=== PATIENT | female | born 1945 | race African-American/Black ===

== ENCOUNTER 2017-04-06 08:58 | Emergency (ER) | payer OTHER ==
[2017-04-06 09:06] VITALS: BP 149/81; PULSE 85; TEMP 99; BMI 22.7
[2017-04-06] MEDS ORDERED: KETOROLAC TROMETHAMINE 60 MG/2 ML VIAL IM ONE (09:50)
[2017-04-06] MEDS ORDERED: KETOROLAC TROMETHAMINE 60 MG/2 ML VIAL ONE (09:51)
[2017-04-06] MEDS ORDERED: CYCLOBENZAPRINE HCL 10 MG TABLET (FP) PO ONE (10:55)
[2017-04-06] MEDS ORDERED: CYCLOBENZAPRINE HCL 10 MG TABLET (FP) ONE (10:57)
--- NOTE | 2017-04-06 11:02 | PDOC ---
History of Present Illness - General Chief Complaint: Pain Stated Complaint: RT LEG/HIP PAIN Time Seen by Provider: 04/06/17 09:19 History Source: Patient Exam Limitations: No Limitations - History of Present Illness Initial Comments: 04/06/17 10:55 CHIEF COMPLAINT: Right hip and right anterior lower leg pain HISTORY OF PRESENT ILLNESS: Patient is a 71 year old female with significant medical hx of HTN, herniated discs, and carpal tunnel surgery of who is presenting to the ED with right sided hip pain for one week. Patient reports that her hip pain has significantly worsened over the past two days which prompted her to come to the ED. has not had episode of same since 2014. The patient normally ambulates freely but due to the pain shes been ambulating with a cane for the past day. Patient denies any recent trauma. Patient reports that pain is unchanged since last episode. As been under the care of Dr. robison for evaluation of right knee pain. Has been having hip pain since 2008. PCP: Dr. Miller from [facility] Past History - Past Medical History Allergies/Adverse Reactions: Allergies Allergy/AdvReac Type Severity Reaction Status Date / Time No Known Allergies Allergy Verified 04/06/17 09:05 Home Medications: Ambulatory Orders Hydrochlorothiazide [Hctz -] 25 mg PO DAILY 04/20/15 Cyclobenzaprine HCl [Flexeril 10 mg] 10 mg PO BID PRN #30 tablet MDD 2 04/06/17 Naproxen [Naprosyn -] 500 mg PO BID #20 tablet 04/06/17 HTN: Yes Other medical history: ARTHRITIS - Immunization History Immunization Up to Date: Yes - Suicide/Smoking/Psychosocial Hx Smoking History: Never smoked Hx Alcohol Use: No Drug/Substance Use Hx: No Substance Use Type: None *Physical Exam - Vital Signs Last Vital Signs Temp Pulse Resp BP Pulse Ox 99.0 F 85 20 149/81 98 04/06/17 09:02 04/06/17 09:02 04/06/17 09:02 04/06/17 09:02 04/06/17 09:02 ED Treatment Course - RADIOLOGY Radiology Studies Ordered: Category Date Time Status HIP & PELVIS-RIGHT [RAD] Stat Radiology 04/06/17 09:48 Completed - Medications Given in the ED: ED Medications Discontinued Medications Generic Name Dose Route Start Last Admin Trade Name Freq PRN Reason Stop Dose Admin Ketorolac Tromethamine 60 mg 04/06/17 09:50 04/06/17 09:57 Toradol Injection - IM 04/06/17 09:51 60 mg ONCE ONE Administration Medical Decision Making - Medical Decision Making 04/06/17 11:02 A/P: Patient here for evaluation of right lateral lower back pain and right hip pain. Patient with pain on direct palpation over right hip sent for x-ray, there is no acute fracture noted both hips appear to be intact with questionable minimal osteoarthritic changes to the right hip joint. Patient will need to follow-up with Dr. robison for further evaluation there is no neurological deficits patient able to ambulate steadily. Toradol 60 mg IM and Flexeril given, will reevaluate 04/06/17 13:48 She states relief of pain after medication will DC patient home on Naprosyn and Flexeril, follow-up with orthopedics. I discussed the physical exam findings, ancillary test results and final diagnoses with the patient. I answered all of the patient's questions. The patient was satisfied with the care received and felt comfortable with the discharge plan and treatment plan. The patient will call to arrange follow-up and will return to the Emergency Department with any new, persistent or worsening symptoms. *DC/Admit/Observation/Transfer Diagnosis at time of Disposition: Arthritis Sciatica Qualifiers: Laterality: right Qualified Code(s): M54.31 - Sciatica, right side - Discharge Dispostion Disposition: HOME Condition at time of disposition: Good Admit: No - Prescriptions Prescriptions: Cyclobenzaprine HCl [Flexeril 10 mg] 10 mg PO BID PRN #30 tablet MDD 2 PRN Reason: pain Naproxen [Naprosyn -] 500 mg PO BID #20 tablet - Referrals Referrals: Dejon Robison MD [Staff Physician] - - Patient Instructions Printed Discharge Instructions: DI for Arthritis Additional Instructions: 1. Please return to the emergency department with any numbness, tingling, weakness, numbness or tingling to groin or legs, or loss of bowel or bladder function. 2. Use pain medication as ordered. 3. Please is to followup in the office of Dr. Robison for evaluation within a week if no improvement. 4. Ice to lower back 5. Refrain from lifting anything above 10 pounds, until pain resolved.
== END 2017-04-06 11:28 | disposition home or self-care (01) ==
LOC: JERFT 08:58
DX: M54.31 Sciatica, right side (principal); I10 Essential (primary) hypertension; M19.90 Unspecified osteoarthritis, unspecified site; X58.XXXA Exposure to other specified factors, initial encounter; Y93.89 Activity, other specified; Y92.9 Unspecified place or not applicable
CPT/HCPCS: 73523-TC; 99281-25

== ENCOUNTER 2017-05-13 11:28 | Day surgery (SDC) | payer OTHER ==
[2017-05-12 11:02] VITALS: BMI 28.6
--- NOTE | 2017-05-13 10:57 | HP ---
Satellite [facility] - Chief Complaint Chief Complaint: right knee pain - Past Medical History Allergies/Adverse Reactions: Allergies Allergy/AdvReac Type Severity Reaction Status Date / Time No Known Allergies Allergy Verified 05/12/17 11:02 - Current Medications Current Medications: Home Medications Medication Instructions Recorded Hydrochlorothiazide [Hctz -] 25 mg PO DAILY 04/20/15 Cyclobenzaprine HCl [Flexeril 10 10 mg PO BID PRN #30 tablet MDD 2 04/06/17 mg] Naproxen [Naprosyn -] 500 mg PO BID #20 tablet 04/06/17 Satellite Physical Exam - Physical Examination Extremities: Other (+ joint line tenderness) Satellite Impression/Plan - Impression/Plan Impression: internal derangement right knee Operative Procedure: arthroscopy right knee Date to be Performed: 05/13/17
[2017-05-13] MEDS ORDERED: LIDOCAINE 1%/EPI 1:100000 (20 ML MULTI DOSE VIAL) ONE (13:45)
[2017-05-13] MEDS ORDERED: BUPIVACAINE HCL/PF 0.5% (5MG/ML) 10 ML VIAL ONE (13:45)
[2017-05-13] MEDS ORDERED: MIDAZOLAM HCL 2 MG/2 ML SINGLE DOSE VIAL ONE (13:55)
[2017-05-13] MEDS ORDERED: PROPOFOL 20 ML ONE (13:55)
[2017-05-13] MEDS ORDERED: ONDANSETRON 4 MG/2 ML VIAL IVPUSH PRN (14:27)
[2017-05-13] MEDS ORDERED: oxyCODONE HCL 5 MG TABLET PO PRN (14:27)
[2017-05-13] MEDS ORDERED: LIDOCAINE 1%/EPI 1:100000 (20 ML MULTI DOSE VIAL) IJ ONE (14:30)
[2017-05-13] MEDS ORDERED: BUPIVACAINE HCL/PF 0.5% (5MG/ML) 10 ML VIAL IJ ONE (14:30)
[2017-05-13] MEDS ORDERED: LACTATED RINGERS SOLUTION 1,000 ML IV SCH (14:30)
--- NOTE | 2017-05-13 14:56 | OP ---
Operative Note - Note: Operative Date: 05/13/17 ([facility]) Pre-Operative Diagnosis: right knee internal derangement Operation: right knee arthroscopy with PMM Post-Operative Diagnosis: Same as Pre-op Surgeon: Dejon Robison Anesthesiologist/IN HOME CAREGIVER: Brittany Bach Anesthesia: General, Local Specimens Removed: shavings Estimated Blood Loss (mls): 5 Operative Report Dictated: Yes
[2017-05-13 17:40] VITALS: BP 151/74; PULSE 63
[2017-05-13 18:01] VITALS: TEMP 97.4
--- NOTE | 2017-05-17 17:01 | PATH ---
Surgical Pathology Report Patient Name: BRYAN PARNELL [facility]. Rec. #: [id number] /Age/Gender: 1945 (Age: 71) / F Account: [id number] Location: [facility] SURGICAL Taken: 05/13/2017 Received: 05/16/2017 Reported: 05/17/2017 Physicians: Dejon Robison M.D. Specimen(s) Received RIGHT KNEE SHAVINGS Clinical History Right knee tear Final Diagnosis KNEE SHAVINGS, RIGHT, ARTHROSCOPY: BENIGN FIBRO-CARTILAGINOUS TISSUE, SYNOVIUM, AND FIBROADIPOSE TISSUE. Electronically Signed Bernadette Grover M.D. Gross Description Received in formalin, labeled "right knee shavings," is a 4.5 x 3.0 x 0.3 cm. aggregate of caldera-yellow soft tissue fragments. A retail service representative portion is submitted in one cassette. 05/16/201705/16/2017
--- NOTE | 2017-05-18 10:21 | SPEC ---
DATE OF OPERATION: 05/13/2017 PREOPERATIVE DIAGNOSIS: Internal derangement right knee. POSTOPERATIVE DIAGNOSIS: Internal derangement right knee. PROCEDURE: Arthroscopy right knee, partial medial meniscectomy. SURGICAL ATTENDING: Dejon Robison MD ANESTHESIA: General with LMA. CLOSURE: 4-0 nylon. COMPLICATIONS: None. CONDITION: To recovery room in stable condition. DESCRIPTION OF OPERATIVE PROCEDURE: Patient was taken to the operating room on May 13, 2017. General anesthesia with LMA was administered by the anesthesiologist. The right lower extremity was prepped and draped in the usual sterile fashion. The medial and lateral infrapatellar portal sites were infiltrated with 1% Xylocaine with epinephrine. Both portals were then made with a 15 blade followed by a blunt trocar. The scope was placed in the lateral infrapatella portal and up into the suprapatellar pouch. The knee was inflated with a cocktail of 10 mL of 1% Xylocaine, 10 mL of 0.5% Marcaine, and 20 mL of arthroscopic saline. This was allowed to sit in the knee for a few minutes to allow the anesthetic to work intraarticularly. The scope was placed in the lateral infrapatellar portal and up into the suprapatellar pouch. The pouch was visualized to be clean. The medial and lateral gutters were visualized to be clean. The undersurface of the patella and trochlea were visualized to be intact. With valgus stress on the knee, the medial compartment was entered. The medial meniscus was visualized, probed, and found to have a complex tear of the posterior horn. This was debrided back to smooth stable meniscal tissue using a meniscal biter and arthroscopic shaver. The medial femoral condyle was run and found to be intact as well as the medial tibial plateau. At 90 degrees, the ACL was visualized, probed, and found to be intact. In the figure 4 position, the lateral compartment was entered. The lateral meniscus was visualized, probed, and found to be intact. The lateral femoral condyle was run and found to be intact as was the lateral tibial plateau. The knee was irrigated with copious amounts of irrigation and then the fluid was drained. The inferomedial portal was closed then with nylon. Prior to pulling the trocar from the lateral infrapatellar portal, 20 mL of 0.5% Marcaine was infused into the knee for postoperative analgesia. The trocar was then pulled and the incision was closed with nylon suture. A sterile pressure dressing was applied. Patient awakened from anesthesia and transferred to recovery in stable condition. No complication. Estimated blood loss negligible. Meenu DE LA [id number]
== END 2017-05-13 17:45 | disposition home or self-care (01) ==
LOC: JASU-SURG 11:28
PROVIDERS: ATTEND Orthopaedic Surgery
PROC: 0SBC4ZZ Excision of Right Knee Joint, Percutaneous Endoscopic Approach (ICD-10-PCS; principal; 2017-05-13 13:00)
DX: S83.231A Complex tear of medial meniscus, current injury, right knee, initial encounter (principal); X58.XXXA Exposure to other specified factors, initial encounter; Y93.9 Activity, unspecified; Y92.9 Unspecified place or not applicable; Y99.9 Unspecified external cause status
CPT/HCPCS: 88304-TC; 94760

== ENCOUNTER 2017-11-23 09:19 | Emergency (ER) | payer OTHER ==
[2017-11-23 09:26] VITALS: BP 144/90; PULSE 76; TEMP 98.3; BMI 22.2
[2017-11-23] MEDS ORDERED: KETOROLAC TROMETHAMINE 60 MG/2 ML VIAL IM ONE (10:06)
--- NOTE | 2017-11-23 10:11 | PDOC ---
History of Present Illness - General Chief Complaint: Pain Stated Complaint: RT HIP PAIN Time Seen by Provider: 11/23/17 09:52 History Source: Patient Exam Limitations: No Limitations - History of Present Illness Occurred: reports: last week Severity: reports: moderate Pain Location: reports: back, lower extremity (right low back and hip pain x 1 week - has history of sciatica and low back pain and has been seen here for same , states received significant relief with "shot in the pills they gave me". Patient was treated with Toradol, and cyclobenzaprine, plus a few Percocet tablets. Was told had arthritis in her hip and low back which causes the sciatic type pain. Did not speak to her private physician about same. Denies fever, erythema to area, any recent illness.) Modifying Factors: improves with: None Associated Symptoms (Fall): denies symptoms Past History - Travel Traveled outside of the country in the last 30 days: No Close contact w/someone who was outside of country & ill: No - Past Medical History Allergies/Adverse Reactions: Allergies Allergy/AdvReac Type Severity Reaction Status Date / Time No Known Allergies Allergy Verified 11/23/17 09:22 Home Medications: Ambulatory Orders Hydrochlorothiazide [Hctz -] 25 mg PO DAILY 04/20/15 Cyclobenzaprine HCl 10 mg PO Q8H PRN #14 tablet 11/23/17 Naproxen [Naprosyn -] 500 mg PO TID #30 tablet 11/23/17 Anemia: No Asthma: No Cancer: No Cardiac Disorders: No CVA: No COPD: No CHF: No Dementia: No Diabetes: No GI Disorders: No Disorders: No HTN: Yes Hypercholesterolemia: No Liver Disease: No Seizures: No Thyroid Disease: No - Surgical History Orthopedic Surgery: Yes (carpal tunnel sx) - Immunization History Immunization Up to Date: Yes - Suicide/Smoking/Psychosocial Hx Smoking History: Never smoked Hx Alcohol Use: No Drug/Substance Use Hx: No Substance Use Type: None Trauma Specific PMHX - Complaint Specific PMHX Back Injury: No Neck Injury: No Review of Systems - Review of Systems Able to Perform ROS?: Yes Is the patient limited [place] proficient: Yes Constitutional: Yes: Symptoms Reported, See HPI, Malaise. No: Fever HEENTM: No: Symptoms Reported Respiratory: No: Symptoms reported Musculoskeletal: Yes: Symptoms Reported, See HPI, Back Pain, Joint Pain, Muscle Pain Integumentary: Yes: See HPI. No: Symptoms Reported, Rash Neurological: Yes: See HPI. No: Symptoms reported, Headache All Other Systems: Reviewed and Negative *Physical Exam - Vital Signs Last Vital Signs Temp Pulse Resp BP Pulse Ox 98.3 F 76 19 144/90 99 11/23/17 09:22 11/23/17 09:22 11/23/17 09:22 11/23/17 09:22 11/23/17 09:22 - Physical Exam General Appearance: Yes: Nourished, Appropriately Dressed, Apparent Distress, Moderate Distress HEENT: positive: BRISA, Normal ENT Inspection, TMs Normal, Pharynx Normal Neck: positive: Supple. negative: Lymphadenopathy (R), Lymphadenopathy (L) Respiratory/Chest: positive: Lungs Clear, Normal Breath Sounds Musculoskeletal: positive: Normal Inspection, Decreased Range of Motion, Muscle Spasm (tense tight muscle groups to right low back ). negative: Vertebral Tenderness Extremity: positive: Normal Capillary Refill. negative: Normal Range of Motion (limited due to pain ) Integumentary: positive: Normal Color, Dry, Warm Neurologic: positive: day care attendant II-XII NML intact, Fully Oriented, Alert, Normal Mood/ Affect, Normal Response, Motor Strength 5/5 Progress Note - Progress Note Progress Note: Acute on chronic sciatica and hip pain. We'll treat with cyclobenzaprine and NSAIDs and refer back to Dr. Robison for reevaluation and recommend physical therapy *DC/Admit/Observation/Transfer Diagnosis at time of Disposition: Sciatica Qualifiers: Laterality: right Qualified Code(s): M54.31 - Sciatica, right side - Discharge Dispostion Disposition: HOME Condition at time of disposition: Stable Decision to Admit order: No - Prescriptions Prescriptions: Cyclobenzaprine HCl 10 mg PO Q8H PRN #14 tablet PRN Reason: spasm Naproxen [Naprosyn -] 500 mg PO TID #30 tablet - Referrals Referrals: Kvng Valdovinos [Primary Care Provider] - - Patient Instructions Printed Discharge Instructions: DI for Back Pain With Sciatica Additional Instructions: Rest, no heavy lifting or exercise until pain is resolved Hot soaks to neck and low back as often as possible/hot showers or Jacuzzis No massage or therapy until spasm is gone Continue Naprosyn 500 mg tablet, 1 tablet every 8 hours for the next 3 days then as needed for pain and swelling Cyclobenzaprine 1-10mg every 8 hours as needed for spasm If not significant improvement within 24 hours with medication and rest regime, followup with private physician for change in medications and /or therapy. - Post Discharge Activity
[2017-11-23] MEDS ORDERED: KETOROLAC TROMETHAMINE 60 MG/2 ML VIAL ONE (10:21)
== END 2017-11-23 10:43 | disposition home or self-care (01) ==
LOC: JERFT 09:19
PROC: 3E0233Z Introduction of Anti-inflammatory into Muscle, Percutaneous Approach (ICD-10-PCS; principal; 2017-11-23)
DX: M54.41 Lumbago with sciatica, right side (principal); I10 Essential (primary) hypertension
CPT/HCPCS: 99281-25